=== PATIENT | male | born 1935 | race Native Hawaiian/Other Pacific Islander ===

== ENCOUNTER 2016-06-12 09:58 | Inpatient (IN) | payer OTHER ==
[~2016-06-12 09:58] MED LIST: ALBUTEROL0.083 % IN; AMBIEN5 MG PO; BENZONATATE100 MG PO; CARV25TA PO; DONE5TAB PO; LISI10TA11 PO; MAGNSUS68 PO
== END 2016-07-13 08:00 | disposition still patient (30) ==
LOC: PAVC 09:58
PROVIDERS: ADMIT Family Medicine
DX: Z51.89 Encounter for other specified aftercare (principal)

== ENCOUNTER 2016-07-13 09:00 | Inpatient (IN) | payer OTHER | END 2016-08-13 13:10 | disposition still patient (30) | LOC: PAVC 09:00 | PROVIDERS: ADMIT Family Medicine | DX: Z51.89 Encounter for other specified aftercare (principal) ==

== ENCOUNTER 2016-08-13 13:17 | Inpatient (IN) | payer OTHER | END 2016-09-10 13:24 | disposition still patient (30) | LOC: PAVC 13:17 | PROVIDERS: ADMIT Family Medicine | DX: Z51.89 Encounter for other specified aftercare (principal) ==

== ENCOUNTER 2016-09-10 13:52 | Inpatient (IN) | payer OTHER | END 2016-10-11 08:10 | disposition still patient (30) | LOC: PAVC 13:52 | PROVIDERS: ADMIT Family Medicine | DX: Z51.89 Encounter for other specified aftercare (principal) ==

== ENCOUNTER 2016-10-11 08:23 | Inpatient (IN) | payer OTHER | END 2016-11-10 11:01 | disposition still patient (30) | LOC: PAVC 08:23 | PROVIDERS: ADMIT Family Medicine | DX: Z51.89 Encounter for other specified aftercare (principal) ==

== ENCOUNTER 2016-10-17 02:51 | Outpatient (CLI) | payer OTHER ==
[2016-10-17 04:08] LABS: PLATELET COUNT 149 K/uL (142-355)
[2016-10-17 04:28] LABS: POTASSIUM 4.5 mmol/L (3.6-5.2)
== END 2016-10-17 19:04 | disposition home or self-care (01) ==
LOC: LAB 02:51
PROVIDERS: Family Medicine
DX: I10 Essential (primary) hypertension (principal); I50.30 Unspecified diastolic (congestive) heart failure
CPT/HCPCS: 80053; 85027

== ENCOUNTER 2016-11-09 09:29 | Outpatient (CLI) | payer OTHER | END 2016-11-09 19:45 | disposition home or self-care (01) | LOC: LAB 09:29 | DX: Z16.24 Resistance to multiple antibiotics (principal) | CPT/HCPCS: 87081 ==

== ENCOUNTER 2016-11-10 11:06 | Inpatient (IN) | payer OTHER | END 2016-12-11 11:13 | disposition still patient (30) | LOC: PAVC 11:06 | PROVIDERS: ADMIT Family Medicine | DX: Z51.89 Encounter for other specified aftercare (principal) ==

== ENCOUNTER 2016-12-11 11:17 | Inpatient (IN) | payer OTHER | END 2017-01-10 16:12 | disposition still patient (30) | LOC: PAVC 11:17 | PROVIDERS: ADMIT Family Medicine | DX: Z51.89 Encounter for other specified aftercare (principal) ==

== ENCOUNTER 2017-01-10 16:17 | Inpatient (IN) | payer OTHER | END 2017-02-10 13:03 | disposition still patient (30) | LOC: PAVC 16:17 | PROVIDERS: ADMIT Family Medicine | DX: Z51.89 Encounter for other specified aftercare (principal) ==

== ENCOUNTER 2017-02-10 14:26 | Inpatient (IN) | payer OTHER | END 2017-03-13 10:02 | disposition still patient (30) | LOC: PAVC 14:26 | PROVIDERS: ADMIT Family Medicine | DX: Z51.89 Encounter for other specified aftercare (principal) ==

== ENCOUNTER 2017-03-13 10:07 | Inpatient (IN) | payer OTHER | END 2017-04-12 09:39 | disposition still patient (30) | LOC: PAVC 10:07 | PROVIDERS: ADMIT Family Medicine | DX: Z51.89 Encounter for other specified aftercare (principal) ==

== ENCOUNTER 2017-04-12 09:44 | Inpatient (IN) | payer OTHER | END 2017-05-13 14:23 | disposition still patient (30) | LOC: PAVC 09:44 | PROVIDERS: ADMIT Family Medicine ==

== ENCOUNTER 2017-04-24 04:31 | Outpatient (CLI) | payer OTHER ==
[2017-04-24 05:48] LABS: PLATELET COUNT 156 K/uL (142-355)
[2017-04-24 06:00] LABS: POTASSIUM 4.4 mmol/L (3.6-5.2)
== END 2017-04-24 05:35 | disposition home or self-care (01) ==
LOC: LAB 04:31
PROVIDERS: Family Medicine
DX: I10 Essential (primary) hypertension (principal); D64.89 Other specified anemias
CPT/HCPCS: 80053; 85027

== ENCOUNTER 2017-05-13 15:28 | Inpatient (IN) | payer OTHER | END 2017-06-12 10:33 | disposition still patient (30) | LOC: PAVC 15:28 | PROVIDERS: ADMIT Family Medicine ==

== ENCOUNTER 2017-06-12 11:09 | Inpatient (IN) | payer OTHER ==
[2017-06-24] MEDS ORDERED: MELATONIN3 M3 PO (21:06)
[2017-06-24] MEDS ORDERED: OXYGEN INH (21:08)
[2017-06-24] MEDS ORDERED: ASPIRIN/ENTERIC81 MG PO (21:12)
[2017-06-24] MEDS ORDERED: CALCIUM 600+D31 TA2 PO (21:15)
[2017-06-24] MEDS ORDERED: KLOR-CON M2020 MEQ PO (21:21)
[2017-06-24] MEDS ORDERED: FURO40TA93 PO (21:23)
[2017-06-24] MEDS ORDERED: LEXAPRO10 MG PO (21:25)
[2017-06-24] MEDS ORDERED: NAMENDA10 MG PO (21:28)
[2017-06-24] MEDS ORDERED: GABA100C2 PO (21:29)
== END 2017-07-13 11:18 | disposition still patient (30) ==
LOC: PAVC 11:09
PROVIDERS: ADMIT Family Medicine
DX: F02.81 Dementia in other diseases classified elsewhere, unspecified severity, with behavioral disturbance (principal); G30.1 Alzheimer's disease with late onset; F41.1 Generalized anxiety disorder; I10 Essential (primary) hypertension
CPT/HCPCS: 81000

== ENCOUNTER 2017-07-10 04:51 | Outpatient (CLI) | payer OTHER ==
[~2017-07-10 04:51] MED LIST changes: +ASPIRIN/ENTERIC81 MG PO; +CALCIUM 600+D31 TA2 PO; +FURO40TA93 PO; +GABA100C2 PO; +KLOR-CON M2020 MEQ PO; +LEXAPRO10 MG PO; +MELATONIN3 M3 PO; +NAMENDA10 MG PO; +OXYGEN INH
== END 2017-07-10 22:12 | disposition home or self-care (01) ==
LOC: LAB 04:51
DX: R34 Anuria and oliguria (principal)

== ENCOUNTER 2017-07-13 11:26 | Inpatient (IN) | payer OTHER | END 2017-08-13 11:16 | disposition still patient (30) | LOC: PAVC 11:26 | PROVIDERS: ADMIT Family Medicine | DX: F02.81 Dementia in other diseases classified elsewhere, unspecified severity, with behavioral disturbance (principal); G30.1 Alzheimer's disease with late onset; F41.1 Generalized anxiety disorder; I10 Essential (primary) hypertension | CPT/HCPCS: 80053; 81000; 84443; 85027 ==

== ENCOUNTER 2017-07-21 17:05 | Outpatient (CLI) | payer OTHER | END 2017-07-21 19:11 | disposition home or self-care (01) | LOC: LAB 17:05 | DX: R06.02 Shortness of breath (principal) | CPT/HCPCS: 83880 ==

== ENCOUNTER 2017-07-22 09:51 | Outpatient (CLI) | payer OTHER | END 2017-07-22 19:38 | disposition home or self-care (01) | LOC: US 09:51 | DX: I71.4 Abdominal aortic aneurysm, without rupture (principal) ==

== ENCOUNTER 2017-07-23 10:30 | Outpatient (CLI) | payer OTHER | END 2017-07-23 16:00 | disposition home or self-care (01) | LOC: RESP 10:30 | DX: I50.9 Heart failure, unspecified (principal) | CPT/HCPCS: 93306 ==

== ENCOUNTER 2017-08-13 11:21 | Inpatient (IN) | payer OTHER | END 2017-09-10 10:42 | disposition still patient (30) | LOC: PAVC 11:21 | PROVIDERS: ADMIT Family Medicine ==

== ENCOUNTER 2017-09-10 11:12 | Inpatient (IN) | payer OTHER | END 2017-10-11 08:00 | disposition still patient (30) | LOC: PAVC 11:12 | PROVIDERS: ADMIT Family Medicine ==

== ENCOUNTER 2017-10-04 15:44 | Outpatient (CLI) | payer OTHER | END 2017-10-04 21:44 | disposition home or self-care (01) | LOC: LAB 15:44 | DX: K62.5 Hemorrhage of anus and rectum (principal) | CPT/HCPCS: 82272 ==

== ENCOUNTER 2017-10-05 05:33 | Outpatient (CLI) | payer OTHER | END 2017-10-05 21:46 | disposition home or self-care (01) | LOC: LAB 05:33 | DX: K62.5 Hemorrhage of anus and rectum (principal) | CPT/HCPCS: 82272 ==

== ENCOUNTER 2017-10-08 19:52 | Outpatient (CLI) | payer OTHER | END 2017-10-08 21:00 | disposition home or self-care (01) | LOC: LABW 19:52 → LAB 19:52 → LABW 21:00 | DX: R19.5 Other fecal abnormalities (principal) | CPT/HCPCS: 82272 ==

== ENCOUNTER 2017-10-11 09:00 | Inpatient (IN) | payer OTHER | END 2017-11-10 10:34 | disposition still patient (30) | LOC: PAVC 09:00 | PROVIDERS: ADMIT Family Medicine ==

== ENCOUNTER 2017-10-22 07:38 | Day surgery (SDC) | payer OTHER ==
[~2017-10-22] VITALS: Ht 30.5 cm; Wt 0.5 kg
[2017-10-22 06:06] LABS: POTASSIUM 4.6 mmol/L (3.6-5.2)
[2017-10-22 06:26] LABS: PLATELET COUNT 176 K/uL (142-355)
== END 2017-10-22 11:00 ==
LOC: OR 07:38
PROVIDERS: Family Medicine
PROC: 0DBP8ZZ Excision of Rectum, Via Natural or Artificial Opening Endoscopic (ICD-10-PCS; principal; 2017-10-22)
DX: Q43.8 Other specified congenital malformations of intestine (principal); K63.5 Polyp of colon; K62.1 Rectal polyp; D17.5 Benign lipomatous neoplasm of intra-abdominal organs; K57.30 Diverticulosis of large intestine without perforation or abscess without bleeding; K92.2 Gastrointestinal hemorrhage, unspecified; I48.2 Chronic atrial fibrillation
CPT/HCPCS: 80053; 85027; J2001; J2704

== ENCOUNTER 2017-11-10 11:08 | Inpatient (IN) | payer OTHER | END 2017-12-11 10:27 | disposition still patient (30) | LOC: PAVC 11:08 | PROVIDERS: ADMIT Family Medicine ==

== ENCOUNTER 2017-12-11 10:32 | Inpatient (IN) | payer OTHER | END 2018-01-10 15:08 | disposition still patient (30) | LOC: PAVC 10:32 | PROVIDERS: ADMIT Family Medicine ==

== ENCOUNTER 2018-01-10 15:13 | Inpatient (IN) | payer OTHER ==
[2018-06-30] MEDS ORDERED: MEMA5TAB PO (22:19)
[2018-06-30] MEDS ORDERED: QUET25TA2 PO (22:19)
[2018-06-30] MEDS ORDERED: DONE5TAB PO (22:19)
[2018-06-30] MEDS ORDERED: MEDR2.5T19 PO (22:19)
[2018-06-30] MEDS ORDERED: OXCARBAZEPIN300 MG PO (22:19)
== END 2018-02-10 08:00 | disposition still patient (30) ==
LOC: PAVC 15:13
PROVIDERS: ADMIT Family Medicine

== ENCOUNTER 2018-01-15 05:53 | Outpatient (CLI) | payer OTHER ==
[2018-01-15 07:53] LABS: PLATELET COUNT 230 K/uL (142-355)
[2018-01-15 08:10] LABS: POTASSIUM 4.6 mmol/L (3.6-5.2)
== END 2018-01-15 19:02 | disposition home or self-care (01) ==
LOC: LAB 05:53
PROVIDERS: Family Medicine
DX: R68.89 Other general symptoms and signs (principal); K21.9 Gastro-esophageal reflux disease without esophagitis
CPT/HCPCS: 80053; 85027

== ENCOUNTER 2018-02-10 09:00 | Inpatient (IN) | payer OTHER | END 2018-03-13 11:14 | disposition still patient (30) | LOC: PAVC 09:00 | PROVIDERS: ADMIT Family Medicine ==

== ENCOUNTER 2018-03-13 11:19 | Inpatient (IN) | payer OTHER | END 2018-04-12 15:07 | disposition still patient (30) | LOC: PAVC 11:19 | PROVIDERS: ADMIT Family Medicine ==

== ENCOUNTER 2018-04-12 16:17 | Inpatient (IN) | payer OTHER | END 2018-05-13 10:42 | disposition still patient (30) | LOC: PAVC 16:17 | PROVIDERS: ADMIT Internal Medicine ==

== ENCOUNTER 2018-04-20 03:19 | Outpatient (CLI) | payer OTHER ==
[2018-04-20 04:19] LABS: PLATELET COUNT 172 K/uL (142-355)
[2018-04-20 04:27] LABS: POTASSIUM 4.1 mmol/L (3.6-5.2)
== END 2018-04-20 22:36 | disposition home or self-care (01) ==
LOC: LAB 03:19
PROVIDERS: Internal Medicine
DX: I48.92 Unspecified atrial flutter (principal); F03.90 Unspecified dementia, unspecified severity, without behavioral disturbance, psychotic disturbance, mood disturbance, and anxiety
CPT/HCPCS: 80053; 85027

== ENCOUNTER 2018-05-13 10:53 | Inpatient (IN) | payer OTHER ==
[2018-06-08] MEDS ORDERED: CLARITIN10 M1 PO (22:28)
[2018-06-08] MEDS ORDERED: CARV12.5 PO (22:29)
[2018-06-08] MEDS ORDERED: TAMS0.4C PO (22:30)
[2018-06-08] MEDS ORDERED: MIRALAX3350 N1 PO (22:32)
[2018-06-08] MEDS ORDERED: MYSOLINE50 MG PO (22:33)
[2018-06-08] MEDS ORDERED: PANTOPRAZOLE 40MG TA PO (22:35)
[2018-06-08] MEDS ORDERED: GABA100C2 PO (22:35)
[2018-06-08] MEDS ORDERED: ALUMSUS6 PO (22:38)
[2018-06-08] MEDS ORDERED: MELATONIN3 MG PO (22:39)
[2018-06-08] MEDS ORDERED: ROBITUSSI PO (22:40)
[2018-06-08] MEDS ORDERED: TYLENOL325 MG PO (22:41)
== END 2018-06-12 07:08 | disposition still patient (30) ==
LOC: PAVC 10:53
PROVIDERS: ADMIT Internal Medicine

== ENCOUNTER 2018-05-27 06:01 | Outpatient (CLI) | payer OTHER | END 2018-05-27 19:27 | disposition home or self-care (01) | LOC: LAB 06:01 | DX: E55.9 Vitamin D deficiency, unspecified (principal) | CPT/HCPCS: 36415; 82306 ==

== ENCOUNTER 2018-06-08 17:38 | Emergency (ER) | payer OTHER ==
[~2018-06-08] VITALS: Ht 175.3 cm; Wt 93.9 kg
[2018-06-08 19:08] LABS: PLATELET COUNT 156 K/uL (142-355)
[2018-06-08 19:12] LABS: POTASSIUM 4.7 mmol/L (3.6-5.2)
[2018-06-08 21:11] VITALS: BP 131/64; TEMP 97.3
[2018-06-08] MEDS ORDERED: CLARITIN10 M1 PO (22:28)
[2018-06-08] MEDS ORDERED: CARV12.5 PO (22:29)
[2018-06-08] MEDS ORDERED: TAMS0.4C PO (22:30)
[2018-06-08] MEDS ORDERED: MIRALAX3350 N1 PO (22:32)
[2018-06-08] MEDS ORDERED: MYSOLINE50 MG PO (22:33)
[2018-06-08] MEDS ORDERED: GABA100C2 PO (22:35)
[2018-06-08] MEDS ORDERED: PANTOPRAZOLE 40MG TA PO (22:35)
[2018-06-08] MEDS ORDERED: ALUMSUS6 PO (22:38)
[2018-06-08] MEDS ORDERED: MELATONIN3 MG PO (22:39)
[2018-06-08] MEDS ORDERED: ROBITUSSI PO (22:40)
[2018-06-08] MEDS ORDERED: TYLENOL325 MG PO (22:41)
== END 2018-06-08 21:56 | disposition other institution (70) ==
LOC: ED 17:38
PROVIDERS: Family Medicine
DX: N39.0 Urinary tract infection, site not specified (principal); R41.82 Altered mental status, unspecified; G20 Parkinson's disease; F02.81 Dementia in other diseases classified elsewhere, unspecified severity, with behavioral disturbance
CPT/HCPCS: 36415; 80053; 85027; 93005; 99285

== ENCOUNTER 2018-06-12 07:13 | Inpatient (IN) | payer OTHER ==
[~2018-06-12 07:13] MED LIST changes: +ALUMSUS6 PO; +CARV12.5 PO; +CLARITIN10 M1 PO; +MELATONIN3 MG PO; +MIRALAX3350 N1 PO; +MYSOLINE50 MG PO; +PANTOPRAZOLE 40MG TA PO; +ROBITUSSI PO; +TAMS0.4C PO; +TYLENOL325 MG PO
[2018-06-30] MEDS ORDERED: MEDR2.5T19 PO (22:19)
[2018-06-30] MEDS ORDERED: DONE5TAB PO (22:19)
[2018-06-30] MEDS ORDERED: MEMA5TAB PO (22:19)
[2018-06-30] MEDS ORDERED: OXCARBAZEPIN300 MG PO (22:19)
[2018-06-30] MEDS ORDERED: QUET25TA2 PO (22:19)
== END 2018-06-15 08:00 | disposition short-term general hospital (02) ==
LOC: PAVC 07:13
PROVIDERS: ADMIT Internal Medicine